=== PATIENT | female | born 1985 | race Caucasian/White ===

== ENCOUNTER 2017-04-06 19:50 | Emergency (ER) | payer MEDICAID ==
[2017-04-06 21:04] LABS: BASOPHILS 0.2 % (0-2); EOSINOPHILS 0 % (0-7); HEMATOCRIT 42.3 % (36.0-48.0); HEMOGLOBIN 14.6 g/dL (12-16); IMMATURE GRANULOCYTES 0.2 % (0-5); LYMPHOCYTES 14.7 % (15-50); MCH 31.8 pg (26.0-34.0); MCHC 34.5 g/dL (31.0-37.0); MCV 92.2 fL (80.0-100.0); MEAN PLATELET VOLUME 9.6 fL (7.4-10.4); MONOCYTES 4.8 % (2-11); NEUTROPHILS 80.1 % (40-80); RBC 4.59 10x6/uL (4.00-5.40); RDW 12.6 % (11.5-14.5); WBC 6.2 10x3/uL (4.8-10.8)
[2017-04-06 21:08] LABS: APPEARANCE CLEAR (CLEAR); BILIRUBIN NEGATIVE (NEGATIVE); COLOR DK YELLOW (YELLOW); GLUCOSE NEGATIVE (NEGATIVE); KETONE NEGATIVE (NEGATIVE); NITRITE NEGATIVE (NEGATIVE); PROTEIN TRACE mg/dL (NEGATIVE); SPECIFIC GRAVITY 1.025 (1.005-1.020); UROBILINOGEN NORMAL (NORMAL)
[2017-04-06 21:12] LABS: BACTERIA MODERATE /hpf (NONE SEEN); EPITHELIAL CELLS 0-5 /hpf (0-5); WHITE CELLS - URINE 0-5 /hpf (0-5)
[2017-04-06 21:18] LABS: HCG SERUM NEGATIVE (NEGATIVE)
[2017-04-06 21:23] LABS: ANION GAP 14.4 mmol/L (8-16); BILIRUBIN - TOTAL 0.27 mg/dL (0.2-1.3); CALCIUM 8.7 mg/dL (8.5-10.1); CARBON DIOXIDE 26.1 mmol/L (21.0-32.0); PLATELET COUNT 137 10x3/uL (130-400); POTASSIUM - SERUM 3.5 mmol/L (3.5-5.1); PROTEIN - SERUM 7.7 g/dL (6.4-8.2)
== END 2017-04-07 02:42 | disposition home or self-care (01) ==
LOC: D.ER 19:50
PROVIDERS: Emergency Medicine
DX: R10.9 Unspecified abdominal pain (principal); K52.9 Noninfective gastroenteritis and colitis, unspecified; F17.200 Nicotine dependence, unspecified, uncomplicated

== ENCOUNTER 2020-05-23 09:40 | Day surgery (SDC) | payer OTHER ==
[~2020-05-23] VITALS: Ht 170.2 cm; Wt 61.2 kg
[2020-05-23 10:01] LABS: HEMATOCRIT 42.6 % (36.0-48.0); HEMOGLOBIN 14.5 g/dL (12-16); MCH 31.7 pg (26.0-34.0); MEAN PLATELET VOLUME 9.1 fL (7.4-10.4); RBC 4.58 10x6/uL (4.00-5.40); RDW 13.5 % (11.5-14.5); WBC 9.4 10x3/uL (4.8-10.8)
[2020-05-23 10:25] LABS: HCG SERUM NEGATIVE (NEGATIVE)
[2020-05-23 11:02] VITALS: BP 110/61; Ht 170.2 cm; Wt 61.2 kg
--- NOTE | 2020-05-23 15:20 | NUR ---
1515 PT STATES SHE HAS REACHED A RIDE AND THEY WILL BE HERE IN ABOUT AN HOUR. PT. IS DRESSED AND WALKING AROUND IN HER ROOM.
--- NOTE | 2020-05-23 16:10 | NUR ---
1600 PT'S SISTER HAS ARRIVED TO DRIVE HER HOME. RELEASED IN WC.
== END 2020-05-23 16:00 | disposition home or self-care (01) ==
LOC: D.OPS 09:40
PROVIDERS: Anesthesiology; ATTEND Obstetrics & Gynecology Maternal & Fetal Medicine
DX: T83.39XA Other mechanical complication of intrauterine contraceptive device, initial encounter (principal)